=== PATIENT | female | born 1980 | race Caucasian/White ===

== ENCOUNTER 2016-05-23 12:09 | Observation (INO) | payer OTHER ==
[2016-05-23] MEDS ORDERED: Sodium Chloride 0.9% 5 ML Syringe FLUSH PRN (12:30)
[2016-05-23] MEDS ORDERED: Lactated Ringers 1,000 ML IV SCH ×3 (12:30→15:15)
[2016-05-23] MEDS ORDERED: Midazolam 1 MG/ML 2 ML SDV ONE (12:48)
[2016-05-23] MEDS ORDERED: fentaNYL 100 MCG/2 ML SDV ONE (12:48)
[2016-05-23] MEDS ORDERED: Propofol 200 MG/20 ML SDV ONE (12:48)
[2016-05-23] MEDS ORDERED: Ketorolac 30 MG/ML SDV ONE (12:49)
[2016-05-23] MEDS ORDERED: Bupivacaine 0.5% 30 ML SDV ONE (12:52)
[2016-05-23] MEDS ORDERED: Bupivacaine 0.5%/EPINEPHrine 1:200,000 30 ML SDV ONE (12:53)
[2016-05-23] MEDS ORDERED: Bacitracin/Neomycin/Polymyxin B Oint 28.4 GM Tube ONE (13:46)
[2016-05-23] MEDS ORDERED: Lactated Ringers 1,000 ML ONE (13:51)
[2016-05-23] MEDS ORDERED: Rocuronium 50 MG/5 ML Vial IV ONE (14:11)
[2016-05-23] MEDS ORDERED: Midazolam 1 MG/ML 2 ML SDV IV ONE (14:11)
[2016-05-23] MEDS ORDERED: Carboprost Tromethamine 250 MCG/1 ML Amp IM ONE (14:11)
[2016-05-23] MEDS ORDERED: fentaNYL 100 MCG/2 ML SDV IV ONE (14:11)
[2016-05-23] MEDS ORDERED: Propofol 200 MG/20 ML SDV IV ONE (14:11)
[2016-05-23] MEDS ORDERED: Bupivacaine 0.5% 30 ML SDV INJECT ONE (14:37)
--- NOTE | 2016-05-23 15:01 | PCM.OPNOTE ---
- General Post-Op/Procedure Note Date of Surgery/Procedure: 05/23/16 Operative Procedure(s): Dilatation and evacuation for missed and retained products Findings: moderate amount of products of conception were seen retained in the uterus. These were removed using the suction curette. Pre Op Diagnosis: Missed greater than 5 weeks Post-Op Diagnosis: As above Primary Surgeon: Brandon Eric Complications: None Condition: Good Free Text/Narrative:: Preoperative diagnosis: Missed , 5 weeks, failure of conservative management and Misoprostol therapy. Postoperative diagnosis: as above Procedure performed: Dilation and evacuation using a 12F suction curette. Informed consent was obtained from the patient and her . Possible complications include infection, pain, perforation of uterus, persistence of retained products, excessive bleeding, possible hysterectomy and other unknown complications. Despite the competition the patient decided to proceed as she had failed conservative management with Misoprostol and observation. The patient was taken to the operating room and kept in the supine position. A satisfactory general anesthetic was administered by the experimental electronics developer. She was then placed in the lithotomy position. Her genitals were thoroughly prepped and draped in the usual fashion. A bimanual examination was first performed. This revealed the uterus approximately 8-9 weeks. The external os was closed. Small amount of bleeding was present. Could not feel any adnexal masses. A weighted speculum was placed in the posterior vaginal wall. An anterior speculum was placed and the anterior lip of the cervix was held with a tenaculum. A uterine sound was placed and the uterine cavity measured approximately 7 inches. Uterus was anteverted and slightly anteflexed. We then dilated the endocervical canal up to 12 dilators. We then placed a suction curette into the in the uterine cavity and applied gentle suction. A moderate quantity of retained products was suctioned . A gentle curettage was also performed. Moderate bleeding was encountered. Uterine massage was performed. Hemabate 250 mcg was given IM. The uterine bleeding then decreased. A Hernández catheter was placed. A sterile vaginal packing was placed into the vagina for additional tamponade. The procedure was terminated. The patient was moved to the recovery room in a satisfactory condition with clear urine draining. No operative complications were observed.
[2016-05-23] MEDS ORDERED: Ondansetron 4 MG Tab.DIS PO PRN (20:27)
[2016-05-23] MEDS ORDERED: Morphine 2 MG/ML Syringe IVPUSH PRN (20:31)
[2016-05-23] MEDS ORDERED: cefTRIAXone 1 GM Vial IVPUSH SCH (20:45)
[2016-05-23] MEDS ORDERED: cefTRIAXone 1 GM in Sodium Chloride 0.9% 50 ML IV SCH (21:00)
[2016-05-23] MEDS: Lactated Ringers 1,000 ML IV SCH (22:30)
[2016-05-24] MEDS: Lactated Ringers 1,000 ML IV SCH (06:10)
--- NOTE | 2016-05-24 09:01 | PN ---
05/23/2016PATIENT NAME: KILLIAN HO SUBJECTIVE: This is a very pleasant patient who underwent a dilatation and evacuation earlier today for a missed . The patient is seen at about 6.45 pm. Doing fairly well. Blood pressure is stable. She was a little bit lightheaded earlier today. She still has considerable pain. When she raises her head she feels little dizzy. She is not quite steady on her feet. Urine is draining clear urine. The vaginal pad is fairly dry. PLAN: Plan will be to just keep her back overnight because of her physical condition and disease status. We will see how she is tomorrow morning. We will repeat a hemoglobin in the morning. We will take the Hernández catheter as well as the vaginal packing out in the morning. We will continue IV at 150 mL an hour tonight. We will recheck a hemoglobin in the morning. We will give her a full liquid diet tonight. /[id number]/MODL MTDD
[2016-05-24 11:22] VITALS: BP 100/65
--- NOTE | 2016-05-24 11:44 | PN ---
05/24/2016PATIENT NAME: KILLIAN HO SUBJECTIVE: This is a 35-year-old patient, who had a missed at nine to 10 weeks. She was initially treated with misoprostol and asked to come back for followup. However, the patient did not return until almost five weeks later. She still had a retained products of conception. She was having some bleeding. So, she was brought in yesterday and because of failure of medication management with misoprostol, she underwent a dilation and evacuation. This is her first day after the procedure. Her vital signs are stable. Temperature is 98.9, blood pressure is 104/65, and pulse is 67. Her hemoglobin is 11.0. She is looking much better this morning. Head is negative. Heart and lungs are stable. Abdomen is soft. Urine is clear. The Hernández catheter was removed and the vaginal packing was removed. We will cut back IV fluids and we will her get up and moving around. If she does well, she will be discharged later today. Follow up in the clinic in seven to 10 days. /[id number]/MODL
--- NOTE | 2016-06-03 14:12 | DISCH ---
SUBJECTIVE: The patient is a 36-year-old multigravida patient, who is admitted to hospital because of failure of conservative management of a missed at approximately 9 to 10 weeks. Initially, she was treated medically with misoprostol on three separate occasions, but that was not successful. The patient kept having bleeding and abdominal cramping. An ultrasound showed retained products of conception approximately 2 inches by the lower part of the uterus. The patient was brought into the hospital and after adequate explanation, the dilatation and evacuation was performed under general anesthesia. The patient did fine initially. She was a little bit dizzy on the day of the procedure. By next morning, her condition her improved, she was stable, she was tolerating oral fluids well, and very little bleeding was present from the vagina. She is urinating well. She was discharged in a satisfactory condition to be seen back in followup in the clinic in about one weeks time. Discharge advise was given regarding her activity, refrain from intercourse, and using Tylenol for relief or discomfort. If she has any question she is advised to call me. /[id number]/MODL
== END 2016-05-24 13:45 | disposition home or self-care (01) ==
LOC: KA.SDS 12:09 → KA.MS 20:24
PROVIDERS: ADMIT Family Medicine; ATTEND Family Medicine
DX: O02.1 Missed abortion (principal); E03.9 Hypothyroidism, unspecified; Z79.899 Other long term (current) drug therapy; Z98.890 Other specified postprocedural states
CPT/HCPCS: 36415; 85025; G0378; J0696; J2250; J2704; J3010; J7050; J7120